=== PATIENT | female | born 1960 | race Caucasian/White ===

== ENCOUNTER 2022-06-12 14:06 | Emergency (ER) | payer OTHER ==
[~2022-06-12 14:06] MED LIST: ASPIRIN EC81 MG PO; PRILOSEC20 MG PO; PRINIVIL10 MG PO
[2022-06-12 16:02] LABS: BILIRUBIN 1+ mg/dL (NEGATIVE); BLOOD NEGATIVE Ery/uL (NEGATIVE); CLARITY CLEAR (CLEAR); COLOR YELLOW (YELLOW); GLUCOSE (U) NORMAL (NORMAL); LEUKOCYTES NEGATIVE Leu/uL (NEGATIVE); NITRITE NEGATIVE (NEGATIVE); PROTEIN NEGATIVE (NEGATIVE); SPECIFIC GRAVITY 1.025 (1.001-1.030); UROBILINOGEN 0.2 mg/dL (0.2-1.0); pH 6.5 (5.0-9.0)
[2022-06-12 16:04] LABS: BASOPHIL 0.6 % (0-2); HCT 43.4 % (37.0-47.0); HGB 15.3 g/dl (12.5-16.0); LYMPHOCYTE 28.3 % (15-48); MCH 33.4 pg (25.0-31.0); MCHC 35.3 g/dL (32.0-36.0); MCV 94.8 fL (78.0-100.0); MONOCYTE 12.9 % (0-12); MPV 10.2 fL (6.0-9.5); NEUTROPHIL 55.9 % (41-80); NRBC 0; PLT 227 K/uL (150-400); RBC 4.58 M/uL (4.20-5.40); RDW 12.7 % (11.5-14.0); WBC 6.5 K/uL (4.0-10.5)
[2022-06-12 16:53] LABS: ALBUMIN 3.5 g/dL (3.4-5.0); BILIRUBIN - TOTAL 0.5 mg/dL (0.2-1.0); BUN/CREAT RATIO (CALC) 24.6 RATIO; CREATININE 0.61 mg/dL (0.51-0.95); POTASSIUM 3.4 mmol/L (3.5-5.1); TOTAL PROTEIN 6.5 g/dL (6.4-8.2)
[2022-06-12] MEDS ORDERED: CARAFATE1 GM PO (19:14)
== END 2022-06-12 19:50 | disposition home or self-care (01) ==
LOC: FER 14:06
PROVIDERS: Physician Assistant
DX: R10.13 Epigastric pain (principal); N28.89 Other specified disorders of kidney and ureter; I25.2 Old myocardial infarction; I10 Essential (primary) hypertension; F17.210 Nicotine dependence, cigarettes, uncomplicated; Z79.82 Long term (current) use of aspirin; Z79.899 Other long term (current) drug therapy; Z95.810 Presence of automatic (implantable) cardiac defibrillator
CPT/HCPCS: 36415; 80053; 81003; 83690; 84484; 85025; 93005; J1885; J2270; J2405; Q9967